=== PATIENT | female | born 1940 | race African-American/Black ===

== ENCOUNTER 2019-04-11 09:07 | Emergency (ER) | payer OTHER ==
[~2019-04-11] VITALS: Ht 165.1 cm; Wt 91.4 kg
[2019-04-11 09:39] LABS: BASOPHILS % 0.7 % (0.0-2.0); HEMOGLOBIN. 9.4 g/dL (12.0-16.0); LYMPHOCYTES % 31.9 % (20.0-50.0); MEAN CORPUSCULAR HEMOGLOBIN 24.3 pg (28.0-32.0); MONOCYTES % 11.3 % (2.0-8.0); NEUTROPHILS % 53.1 % (40.0-76.0); PLATELET 286 x1000/uL (130-400); RED BLOOD CELL COUNT 3.88 mill/uL (4.2-5.4); RED CELL DISTRIBUTION WIDTH 16.4 % (11.6-14.6)
[2019-04-11 09:45] LABS: INR 1.1; PROTHROMBIN TIME 11.1 sec (9.6-11.0)
[2019-04-11 09:48] LABS: CHLORIDE 102 mEq/L (98-107)
[2019-04-11 09:52] LABS: ETHANOL BLOOD < 10 mg/dL
[2019-04-11 09:55] LABS: LDL CHOLESTEROL 30 mg/dL (5-100)
[2019-04-11] MEDS ORDERED: ASPIRIN 325MG EC TABLET PO ONE (10:30)
[2019-04-11] MEDS ORDERED: ALTEPLASE IV STA (10:34)
[2019-04-11] MEDS: ALTEPLASE 100MG/VIAL IV STA ×2 (10:37→11:00)
[2019-04-11] MEDS ORDERED: *NO ASPIRIN X 24 HOURS XX SCH (11:00)
[2019-04-11 11:51] LABS: CLARITY URINE CLEAR (CLEAR); COLOR URINE YELLOW (YELLOW); KETONES URINE NEGATIVE (NEGATIVE); LEUKOCYTE ESTERASE URINE TRACE (NEGATIVE); NITRITE URINE NEGATIVE (NEGATIVE); OCCULT BLOOD URINE NEGATIVE (NEGATIVE); PH URINE 7.5 (4.5-8.0); PROTEIN URINE NEGATIVE (NEGATIVE); SPECIFIC GRAVITY URINE 1.006 (1.005-1.030); UROBILINOGEN URINE 0.2 E.U./dL (0.2-1.0)
[2019-04-11 12:20] LABS: *AMPHETAMINES SCREEN URINE NEGATIVE (NEGATIVE); *BARBITURATES SCREEN URINE NEGATIVE (NEGATIVE)
[2019-04-11 12:21] LABS: *BENZODIAZEPINES SCREEN URINE PRESUMTIVE POSITIVE (NEGATIVE); *COCAINE SCREEN URINE NEGATIVE (NEGATIVE); CANNABINOID URINE SCREEN NEGATIVE (NEGATIVE); METHADONE URINE SCREEN NEGATIVE (NEGATIVE); OPIATES URINE SCREEN NEGATIVE (NEGATIVE); PHENCYCLIDINE URINE SCREEN NEGATIVE (NEGATIVE)
[2019-04-11 12:46] VITALS: BP 149/71
== END 2019-04-11 13:04 | disposition short-term general hospital (02) ==
LOC: ER 09:07 → CANBEDREQ 10:36 → ER 13:04
DX: I63.9 Cerebral infarction, unspecified (principal); R29.705 NIHSS score 5; E11.9 Type 2 diabetes mellitus without complications; Z85.3 Personal history of malignant neoplasm of breast; Z79.82 Long term (current) use of aspirin
CPT/HCPCS: 36415; 37195; 70450; 71045; 80053; 80305; 80320; 81003; 82962; 83721; 84484; 85025; 85610; 93005; 99291; J2997; G0480

== ENCOUNTER 2024-08-22 00:53 | Emergency (ER) | payer OTHER ==
[~2024-08-22] VITALS: Ht 160 cm; Wt 55.0 kg
[2024-08-22 01:02] VITALS: O2SAT 98
[2024-08-22] MEDS: DEXTROSE 5% WATER 1,000 ML IV ONE (02:43)
[2024-08-22 04:09] LABS: BASOPHILS % 0.4 % (0.0-2.0); EOSINOPHILS % 0.4 % (0.0-5.0); HEMATOCRIT. 36.4 % (36.0-48.0); HEMOGLOBIN. 12.1 g/dL (12.0-16.0); LYMPHOCYTES % 13.6 % (20.0-50.0); MEAN CORPUSCULAR HGB CONC 33.2 g/dL (31.0-37.0); MEAN CORPUSCULAR VOLUME 99.5 fL (81.0-99.0); MEAN PLATELET VOLUME 8.3 fl (7.4-10.4); NEUTROPHILS % 78.6 % (40.0-76.0); PLATELET 208 x1000/uL (130-400); RED BLOOD CELL COUNT 3.65 mill/uL (4.2-5.4); RED CELL DISTRIBUTION WIDTH 14.5 % (11.6-14.6); WHITE BLOOD COUNT 7.6 x1000/uL (4.5-11.0)
[2024-08-22 04:22] LABS: CLARITY URINE CLEAR (CLEAR); COLOR URINE YELLOW (YELLOW); GLUCOSE URINE NEGATIVE (NEGATIVE); KETONES URINE NEGATIVE (NEGATIVE); LEUKOCYTE ESTERASE URINE NEGATIVE (NEGATIVE); NITRITE URINE NEGATIVE (NEGATIVE); OCCULT BLOOD URINE NEGATIVE (NEGATIVE); PH URINE 6.5 (4.5-8.0); PROTEIN URINE NEGATIVE (NEGATIVE); SPECIFIC GRAVITY URINE 1.009 (1.005-1.030); UROBILINOGEN URINE 0.2 E.U./dL (0.2-1.0)
[2024-08-22 04:36] LABS: CHLORIDE 102 mEq/L (98-107); POTASSIUM 5.6 mEq/L (3.5-5.1); SODIUM 138 mEq/L (136-145)
[2024-08-22 04:37] LABS: CALCIUM 8.9 mg/dL (8.7-10.4); CARBON DIOXIDE 26 mEq/L (21-32)
[2024-08-22 04:42] LABS: CREATININE 1.1 mg/dL (0.6-1.0); GLUCOSE 117 mg/dL (70-105); UREA NITROGEN BLOOD 8 mg/dL (9-23)
[2024-08-22 04:43] LABS: TROPONIN I HIGH SENSITIVITY 25 ng/L (3.0-34)
[2024-08-22] MEDS: SODIUM BICARBONATE 8.4% 50MEQ/50ML SYR IV ONE (06:05)
[2024-08-22] MEDS: SODIUM POLYSTYRENE SULFONATE 15 G/60 ML BOT PO ONE (06:05)
[2024-08-22 06:41] LABS: TROPONIN I HIGH SENSITIVITY 24 ng/L (3.0-34)
[2024-08-22 06:56] VITALS: BP 161/68; PULSE 83; RESP 20; TEMP 36.8; O2SAT 99
== END 2024-08-22 07:09 | disposition short-term general hospital (02) ==
LOC: ER 00:53
DX: E87.5 Hyperkalemia (principal); R51.9 Headache, unspecified; E11.649 Type 2 diabetes mellitus with hypoglycemia without coma; Z86.73 Personal history of transient ischemic attack (TIA), and cerebral infarction without residual deficits
CPT/HCPCS: 99285; 96365; 70450; 71045; 96375; 80048; 81003; 82962; 85025; 84484; 36415; 93005; J3490; J7070